=== PATIENT | male | born 2005 | race Caucasian/White ===

== ENCOUNTER 2023-06-20 17:43 | Emergency (ER) | payer MEDICAID, SELFPAY ==
[2023-06-20 17:53] VITALS: BMI 21.5
--- NOTE | 2023-06-20 17:53 | ED.OVERDOSE ---
HPI - Overdose General Chief Complaint: Overdose Stated Complaint: OD? narcan given Time Seen by Provider: 06/20/23 17:52 Source: patient and EMS Mode of arrival: EMS Limitations: no limitations History of Present Illness HPI Narrative: Patient has a substance abuse apparently was friend's house in the kitchen floor not responding at PD and EMS gave him total of 9 mg of narcan did CPR for short time after arrival to the ER patient does not remember what happened to him denies any substance use agitated refusing to change like to go home stable vital saturating 100% on room air Review of Systems Review of Systems: Yes all other systems are reviewed and are negative [facility] Social History Social History Advance Directives: No Advance Directives Information Provided: No Physical Exam Vital Signs: Vital Signs: BMI result Body Mass Index 21.5 Appearance: Alert. Oriented X3. No acute distress. Eyes: PERRLA, No Nystagmus ENT: Pharynx normal. Oral Mucosa moist Neck: Normal inspection. Neck supple. CVS: Normal heart rate and rhythm. Pulses normal. Respiratory: No respiratory distress. Equal air entry bilateral, no wheezing/rales/rhonchi Abdomen: Soft and nontender. Bowel sounds are present, no mass palpable, no CVA tenderness Skin: Skin warm and dry. Normal skin color. Normal skin turgor. Extremities: No lower extremity edema. No calf tenderness Neuro: Oriented X 3. No motor deficit. No sensory deficit.No cerebellar signs , cranial nerves II-XII intact Medical Decision Making Medical Decision Making MDM Narrative: Patient refused to stay in the ER for observation does not want any help to go to detox patient has a warrant against him [employer] is here to take him to the custody Discharge Plan Discharge Clinical Impression: Cocaine intoxication Drug overdose Qualifiers: Encounter type: subsequent encounter Patient Disposition: Home, Self-Care Instructions: Opioid Use Disorder (ED) Additional Instructions: Stop using drugs follow up with detox Interventions: ED Discharge Assessment Last Done: 06/20/23 18:05 Discharge Date/Time: 06/20/23 18:56
--- NOTE | 2023-06-20 17:55 | PC.NURSE ---
Patient arrived via ems after a reported overdose at his friends house. Patient belligerent denying that he overdosed and the police, fire, and ems brought him here for no reason. Patient refused all vitals, able to be re-directed to sit on stretcher. Patient seen by provider.
--- NOTE | 2023-06-20 18:03 | PC.NURSE ---
Patient cleared for discharge by provider. Taken into [place] [employer] custody for an outstanding warrant
== END 2023-06-20 18:56 | disposition home or self-care (01) ==
PROVIDERS: Emergency Provider Internal Medicine
DX: F14.129 Cocaine abuse with intoxication, unspecified (principal)
CPT/HCPCS: 99282